=== PATIENT | male | born 1960 | race Caucasian/White ===

== ENCOUNTER → 2016-05-20 | Outpatient (CLI) | payer OTHER ==
[~2016-05-20] MED LIST: ASPI81TA28 PO; ATOR-24 PO; FLUT50SP14 NAE; GLC/500 PO; LOSA50TA54 PO; LZL/125 PO; SENN-61 PO; TERA1CAP63 PO
== END | disposition home or self-care (01) ==
LOC: C.LABPVFM 08:25
PROVIDERS: ATTEND Family Medicine
DX: E87.6 Hypokalemia (principal)

== ENCOUNTER → 2016-08-05 | Outpatient (CLI) | payer OTHER ==
[2016-08-05 13:36] LABS: ESTIMATED AVERAGE GLUCOSE 140 mg/dl; HA1C FLAG Normal (Normal)
[2016-08-05 13:43] LABS: ALB/GLOB RATIO 1.5 (0.9-2); ALKALINE PHOSPHATASE 95 U/L (45-117); ALT/SGPT 36 U/L (12-78); AST/SGOT 19 U/L (15-37); BLOOD UREA NITROGEN 9 mg/dl (7-18); BUN/CREATININE RATIO 9.9 (10-20); CALCIUM 9.1 mg/dl (8.5-10.1); CARBON DIOXIDE 30 mmol/L (21-32); CHLORIDE 99 mmol/L (98-107); CREATININE 0.93 mg/dl (0.60-1.40); GLUCOSE 133 mg/dl (70-99); POTASSIUM 3.6 mmol/L (3.5-5.1); SODIUM 138 mmol/L (136-145)
--- NOTE | 2016-08-10 13:14 | CODING QUERY MEDICAL NECESSITY ---
SUPPORTING DIAGNOSIS NEEDED Dr. Lozada, A supporting diagnosis is required for the test/procedure performed on this patient in order for us to be reimbursed by the patient's insurance. Please provide a supporting diagnosis for the following test/procedure listed below next to the test name along with your signature. *If there is no additional diagnosis for this patient that would support the following test/procedure please document that below next to the test/procedure. Test(s)/Procedure(s) that require a supporting diagnosis: * [id number] PSA DIAGNOSIS: DATE OF SERVICE: 08/05/16 Provider Signature: Date: Thank you Anthony Santo [facility] Information Management Once completed, please kindly fax back to [phone] For questions please call [phone]
== END | disposition home or self-care (01) ==
LOC: C.LABPVFM 08:44
PROVIDERS: ATTEND Urology
DX: C64.9 Malignant neoplasm of unspecified kidney, except renal pelvis (principal); I10 Essential (primary) hypertension; E78.5 Hyperlipidemia, unspecified; E87.6 Hypokalemia; E11.9 Type 2 diabetes mellitus without complications; Z12.5 Encounter for screening for malignant neoplasm of prostate

== ENCOUNTER → 2016-08-22 | Outpatient (CLI) | payer OTHER ==
[~2016-08-22] MED LIST changes: +OPTIRAY 320 IV PRN
--- NOTE | 2016-08-22 12:03 | DIAGNOSTIC IMAGING REPORT ---
CT OF THE CHEST WITH IV CONTRAST CLINICAL HISTORY: C64.9 Renal cell [id number] COMPARISON STUDY: 09/23/2015 TECHNIQUE: Following the IV administration of 94 mL of Optiray-320, CT of the thorax was performed from the thoracic inlet to the lung bases. Images are reviewed in the axial, sagittal, and coronal planes. IV contrast was administered without complication. CT DOSE: 1626.73 mGy.cm FINDINGS: Thyroid: Imaged portions of the thyroid gland are normal in appearance. Thoracic aorta: There is mild dilatation of the ascending thoracic aorta which measures 43 mm in diameter. Pulmonary vasculature: The pulmonary trunk is normal in caliber. There are no central filling defects identified to suggest pulmonary embolus. Note that this examination was not protocoled for the evaluation of pulmonary emboli. HEART: The heart is normal in size and configuration, without pericardial effusion. Lungs and pleural spaces: No pleural effusions are visualized. There is no evidence of acute parenchymal consolidation. There is a tiny calcified right lower lobe granuloma. Mediastinum: There is no mediastinal lymphadenopathy. Amelia: Clear. Axilla: Clear. Upper abdomen: There is hepatic steatosis. There are multiple hypodense splenic lesions the largest of which measures 22 mm. Skeletal structures: There are no lytic or blastic osseous lesions. IMPRESSION: 1. No suspicious pulmonary masses. No evidence of pathologic adenopathy. 2. Mild dilatation of the ascending thoracic aorta (43 mm) 3. Multiple splenic nodules, a finding previously reported Electronically signed by: Willis Feldman M.D. 08/22/2016 12:01 PM Dictated Date/Time: 08/22/2016 11:54 AM
--- NOTE | 2016-08-22 14:08 | DIAGNOSTIC IMAGING REPORT ---
CT OF THE ABDOMEN AND PELVIS RENAL PROTOCOL CLINICAL HISTORY: Renal cell carcinoma. COMPARISON STUDY: CT of the abdomen and pelvis September 23, 2015. TECHNIQUE: Unenhanced, nephrographic and delayed phase imaging of the abdomen was performed. The pelvis was reviewed during venous phase. Injection of 94 cc Optiray 320 IV was uneventful. FINDINGS: The chest will be reported separately. The liver, adrenal glands and pancreas are normal. A 1 cm hypodense lesion within the midpole of the right kidney is too small to characterize but this is unchanged. There are postsurgical findings consistent with a left partial nephrectomy. The previously described mass within the midpole of the left kidney is no longer visualized. There is a small amount of infiltration and thickening of the left Gerota's fascia. The large collection shown on exam of September 23, 2015 has resolved. There is no evidence for a bowel obstruction. There are no enlarged lymph nodes. No suspicious osseous lesions are present. The prostate is moderately enlarged. Multiple hypodense splenic lesions measuring up to 2.6 cm are unchanged since exam of June 23, 2015. IMPRESSION: 1. Findings consistent with a left partial nephrectomy. No evidence for recurrent or residual malignancy. Mild left perinephric infiltration and thickening of the Gerota's fascia is likely postprocedural. This can be assessed on subsequent exams. Resolution of the left pararenal/perinephric fluid collection shown on exam of September 23, 2015. 2. No change in multiple hypodense splenic lesions which are likely benign. Electronically signed by: Fuad Stanley M.D. 08/22/2016 2:06 PM Dictated Date/Time: 08/22/2016 12:12 PM
== END | disposition home or self-care (01) ==
LOC: C.CTS 11:00
PROVIDERS: ATTEND Urology
DX: C64.9 Malignant neoplasm of unspecified kidney, except renal pelvis (principal); D73.89 Other diseases of spleen; I77.810 Thoracic aortic ectasia

== ENCOUNTER → 2016-08-24 | Outpatient (CLI) | payer OTHER ==
[~2016-08-24] MED LIST changes: -OPTIRAY 320 IV PRN
[2016-08-24 12:20] LABS: BLOOD UREA NITROGEN 7 mg/dl (7-18); BUN/CREATININE RATIO 6.9 (10-20); CREATININE 0.95 mg/dl (0.60-1.40)
== END | disposition home or self-care (01) ==
LOC: C.LABPVFM 07:37
PROVIDERS: ATTEND Urology
DX: C64.9 Malignant neoplasm of unspecified kidney, except renal pelvis (principal)

== ENCOUNTER → 2017-03-10 | Outpatient (CLI) | payer OTHER ==
[2017-03-10 13:18] LABS: ALKALINE PHOSPHATASE 92 U/L (45-117); ALT/SGPT 44 U/L (12-78); BLOOD UREA NITROGEN 9 mg/dl (7-18); CALCIUM 8.6 mg/dl (8.5-10.1); CARBON DIOXIDE 30 mmol/L (21-32); CHLORIDE 99 mmol/L (98-107); CREATININE 0.89 mg/dl (0.60-1.40); GLUCOSE 104 mg/dl (70-99); HDL CHOLESTEROL 46 mg/dl; POTASSIUM 3.3 mmol/L (3.5-5.1); SODIUM 136 mmol/L (136-145)
[2017-03-10 13:19] LABS: ALB/GLOB RATIO 1.3 (0.9-2); AST/SGOT 26 U/L (15-37); CHOLESTEROL 109 mg/dl (0-200); CHOLESTEROL/HDL RATIO 2.4; LDL CHOLESTEROL CALCULATED 41 mg/dl; TRIGLYCERIDES 112 mg/dl (0-150); VERY LOW DENSITY LIPOPROT CALC 22 mg/dl
[2017-03-10 13:35] LABS: ESTIMATED AVERAGE GLUCOSE 120 mg/dl; HA1C FLAG Normal (Normal)
== END | disposition home or self-care (01) ==
LOC: C.LABPVFM 08:47
PROVIDERS: ATTEND Family Medicine
DX: E11.9 Type 2 diabetes mellitus without complications (principal); E78.5 Hyperlipidemia, unspecified; I10 Essential (primary) hypertension; E87.6 Hypokalemia; C64.9 Malignant neoplasm of unspecified kidney, except renal pelvis

== ENCOUNTER → 2017-04-10 | Outpatient (CLI) | payer OTHER ==
--- NOTE | 2017-04-10 10:44 | DIAGNOSTIC IMAGING REPORT ---
ABDOMEN 2VIEW W/PA CHEST RTN CLINICAL HISTORY: Acute abdominal pain COMPARISON STUDY: CT scan dated 08/22/2016 FINDINGS: The erect chest reveals no evidence of free air. There is no evidence of focal pulmonary consolidation.] Erect and supine views of the abdomen reveal no abnormally dilated loops of large or small bowel. There are no transition zone to indicate bowel obstruction. There is SI joint sclerosis. IMPRESSION: No evidence of bowel obstruction. No evidence of free air. Electronically signed by: Willis Feldman M.D. 04/10/2017 10:43 AM Dictated Date/Time: 04/10/2017 10:42 AM
== END | disposition home or self-care (01) ==
LOC: C.RADPV 10:22
PROVIDERS: ATTEND Family Medicine
DX: R10.9 Unspecified abdominal pain (principal)

== ENCOUNTER → 2017-04-14 | Outpatient (CLI) | payer OTHER | END | disposition home or self-care (01) | LOC: C.LABPVFM 07:56 | PROVIDERS: ATTEND Family Medicine | DX: C64.9 Malignant neoplasm of unspecified kidney, except renal pelvis (principal) ==

== ENCOUNTER → 2017-07-24 | Outpatient (CLI) | payer OTHER ==
[2017-07-24 13:03] LABS: ALBUMIN 3.8 gm/dl (3.4-5.0); ALT/SGPT 42 U/L (12-78); BLOOD UREA NITROGEN 10 mg/dl (7-18); CALCIUM 8.8 mg/dl (8.5-10.1); CARBON DIOXIDE 30 mmol/L (21-32); CREATININE 0.99 mg/dl (0.60-1.40); GLUCOSE 107 mg/dl (70-99); HEMOGLOBIN A1C 5.8 % (4.5-5.6); POTASSIUM 3.4 mmol/L (3.5-5.1); SODIUM 135 mmol/L (136-145)
[2017-07-24 13:06] LABS: ALKALINE PHOSPHATASE 90 U/L (45-117); AST/SGOT 21 U/L (15-37); TOTAL PROTEIN 7.1 gm/dl (6.4-8.2)
== END | disposition home or self-care (01) ==
LOC: C.LABPVFM 07:53
PROVIDERS: ATTEND Urology
DX: I10 Essential (primary) hypertension (principal); E78.5 Hyperlipidemia, unspecified; E87.6 Hypokalemia; E80.4 Gilbert syndrome; C64.9 Malignant neoplasm of unspecified kidney, except renal pelvis; E11.9 Type 2 diabetes mellitus without complications

== ENCOUNTER → 2017-08-07 | Outpatient (CLI) | payer OTHER ==
[~2017-08-07] MED LIST changes: +OPTIRAY 320 IV PRN
--- NOTE | 2017-08-07 10:07 | DIAGNOSTIC IMAGING REPORT ---
ABDOMEN AND PELVIS CT WITH AND WITHOUT INTRAVENOUS CONTRAST, RENAL PROTOCOL HISTORY: Follow-up renal cell carcinoma. Partial nephrectomy. TECHNIQUE: Multiaxial CT images of the abdomen and pelvis were performed both before and after the intravenous administration of contrast to evaluate the kidneys. COMPARISON STUDY: Abdomen and pelvis CT 08/22/2016. FINDINGS: Stable 6 cm subpleural nodule within the right middle lobe. Punctate calcified granuloma within the right lower lobe. Trace right pleural effusion. The liver, adrenal glands and pancreas are normal. A 1 cm hypodense lesion within the midpole of the right kidney is too small to characterize but this is unchanged. There are postsurgical findings consistent with a left partial nephrectomy. The previously described mass within the midpole of the left kidney is no longer visualized. There is a small amount of infiltration and thickening of the left Gerota's fascia. Trace left perinephric fluid persists. There is no evidence for a bowel obstruction. There are no enlarged lymph nodes. No suspicious osseous lesions are present. The prostate is moderately enlarged. Multiple hypodense splenic lesions measuring up to 2.6 cm are unchanged since exam of June 23, 2015. Tiny fat-containing periumbilical hernia. Stable subcentimeter retroperitoneal lymph nodes. No suspicious lytic or blastic osseous lesions. IMPRESSION: 1. Findings consistent with a left partial nephrectomy. No evidence for recurrent or residual malignancy. Mild left perinephric infiltration and thickening of the Gerota's fascia is likely postprocedural and is not significantly changed. This should be followed on subsequent exams. Trace left pararenal/perinephric fluid collection has improved. 2. No change in multiple hypodense splenic lesions which are likely benign. 3. Trace right pleural effusion. Electronically signed by: Telly Santos M.D. 08/07/2017 10:05 AM Dictated Date/Time: 08/07/2017 9:51 AM
== END | disposition home or self-care (01) ==
LOC: C.CTS 09:05
PROVIDERS: ATTEND Urology
DX: C64.9 Malignant neoplasm of unspecified kidney, except renal pelvis (principal)

== ENCOUNTER → 2017-08-09 | Outpatient (CLI) | payer OTHER ==
[~2017-08-09] MED LIST changes: -OPTIRAY 320 IV PRN
[2017-08-09 13:17] LABS: BLOOD UREA NITROGEN 11 mg/dl (7-18); CREATININE 0.94 mg/dl (0.60-1.40)
== END | disposition home or self-care (01) ==
LOC: C.LABPVFM 08:37
PROVIDERS: ATTEND Urology
DX: N40.0 Benign prostatic hyperplasia without lower urinary tract symptoms (principal); C64.9 Malignant neoplasm of unspecified kidney, except renal pelvis

== ENCOUNTER → 2017-09-15 | Outpatient (CLI) | payer OTHER | END | disposition home or self-care (01) | LOC: C.LABPVFM 07:36 | PROVIDERS: ATTEND Family Medicine | DX: E87.6 Hypokalemia (principal) ==